=== PATIENT | female | born 1945 | race Two or more races ===

== ENCOUNTER → 2023-09-16 | Emergency (ER) | payer OTHER ==
[~2023-09-16] VITALS: Ht 152.4 cm; Wt 67.1 kg
[~2023-09-16] MED LIST: ADVAIR 2501 DISK W/1 IH; COZAAR50 MG PO; FOSAMAX70 MG PO; GABAPENTIN600 MG PO; GLIPIZ PO; GLUMETZA1000 MG PO; LIPITOR20 MG PO; MACROBID 100 M100 MG PO; ULTRACET PO
== END | disposition left against medical advice (07) ==
LOC: ER 03:13
DX: Z53.21 Procedure and treatment not carried out due to patient leaving prior to being seen by health care provider (principal)